=== PATIENT | male | born 1960 | race Caucasian/White ===

== ENCOUNTER → 2018-06-18 | Outpatient (CLI) | payer OTHER ==
[~2018-06-18] MED LIST: OMNIPAQUE 350 MG/ML, 100ML BOTTLE ONE
[2018-06-18 12:12] LABS: CREATININE 1.06 mg/dL (0.7-1.3)
== END | disposition home or self-care (01) ==
LOC: RAD 11:49
PROVIDERS: ATTEND Otolaryngology
DX: R22.1 Localized swelling, mass and lump, neck (principal)
CPT/HCPCS: 36415; 70492; 82565; 84520; Q9967

== ENCOUNTER → 2018-07-03 | Outpatient (CLI) | payer OTHER ==
[~2018-07-03] MED LIST changes: +LIDOCAINE-MPF 1%, 5ML ONE; -OMNIPAQUE 350 MG/ML, 100ML BOTTLE ONE
== END | disposition home or self-care (01) ==
LOC: RAD 13:22
PROVIDERS: ATTEND Otolaryngology
DX: R59.9 Enlarged lymph nodes, unspecified (principal)
CPT/HCPCS: 76942